=== PATIENT | male | born 1985 | race Caucasian/White ===

== ENCOUNTER 2021-04-23 08:49 | Emergency (ER) | payer OTHER, SELFPAY ==
--- NOTE | ~2021-04-23 | XR_ITS ---
EXAMINATION: XR abdomen/kub 1V DATE: 04/23/2021 10:43 INDICATION: Right flank pain. Kidney stone. TECHNIQUE: A supine view of the abdomen on 2 radiographs was obtained. COMPARISON: CT abdomen and pelvis 04/23/2021 FINDINGS: There are no dilated loops of bowel. There is a 3 mm stone in right ureter at L4-L5. IMPRESSION: 1. 3 mm stone in proximal right ureter. Reviewed, dictated and finalized at location A. ICAL SUPPORT NURSE
--- NOTE | ~2021-04-23 | CT_ITS ---
EXAMINATION: CT abdomen pelvis wo con DATE: 04/23/2021 09:52 INDICATION: Right flank pain. TECHNIQUE: Computed tomography (CT) of the abdomen and pelvis was performed without intravenous contr ast. Automated exposure control and iterative reconstruction technique were employed. The dose-length product was 205.18 mGy-cm. COMPARISON: None. FINDINGS: The visualized portions of the lung bases demonstrate mild atelectasis. No pleural effusion . The heart size is normal. No pericardial effusion. The liver, gallbladder, pancreas, and adrenal gl ands are normal. 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 There is mild right hydronephrosis and hydroureter. There is a 3 mm stone in proximal right ureter. Left kidn ey is normal. There are no dilated loops of bowel. The appendix is normal. There are no pathologicall y enlarged lymph nodes. There is no free intraperitoneal fluid. There is mild lumbar spondylosis. IMPRESSION: 1. 3 mm stone in proximal right ureter with mild right hydronephrosis and proximal hydroureter. Reviewed, dictated and finalized at location A. H EXAMINER HAND IMPRESSION: 1. 3 mm stone in proximal right ureter with mild right hydronephrosis and proxi mal hydroureter.
[2021-04-23 08:56] VITALS: BP 134/84; PULSE 74; RESP 20; TEMP 36.9; O2SAT 100
[2021-04-23 09:50] LABS: Basophils Percent Auto 0.3 % (0.2-1.2); Eosinophils Percent Auto 0.1 % (0-4.4); Hematocrit 45.5 % (42.0-52.0); Immature Granulocyte Absolute 0.02 K/mm3 (0.00-0.031); Immature Granulocyte Percent A 0.3 % (0-0.5); Lymphocytes Absolute Auto 0.52 K/mm3 (0.9-3.2); Lymphocytes Percent Auto 6.5 % (18.3-44.2); Mean Corpuscular HGB Conc 35.2 g/dl (32-36); Mean Corpuscular Hemoglobin 29.9 pg (26-34); Mean Corpuscular Volume 84.9 fl (80-100); Mean Platelet Volume 9.1 fl (7.4-10.4); Monocytes Absolute Auto 0.4 K/mm3 (0.1-0.6); Monocytes Percent Auto 4.5 % (2.6-8.5); Neutrophils Percent Auto 88.3 % (45.5-73.1); Platelet Count Result 212 k/mm3 (150-375); Red Blood Count 5.36 M/mm3 (4.6-6.20); Red Cell Distribution Width 12.8 % (11.5-14.5); White Blood Count 7.9 K/mm3 (4.5-10.0)
[2021-04-23 09:57] LABS: Alanine Aminotransferase 23 U/L (4-50); Albumin Level 4.5 g/dL (3.5-5.1); Alkaline Phosphatase 115 U/L (38-126); Anion Gap 5 mmol/L (8-16); Aspartate Amino Transferase 27 U/L (17-59); Bilirubin,Total 0.8 mg/dL (0.2-1.3); Blood Urea Nitrogen 14 mg/dL (9-20); Calcium 11.7 mg/dL (8.4-10.2); Carbon Dioxide 26 mmol/L (22-30); Chloride 106 mmol/L (98-107); Estimated CRCL calculation 81 ml/min; Estimated Glomerular Filt Rate > 60; Glucose 112 mg/dL (65-110); Potassium 3.9 mmol/L (3.4-5.0); Sodium 137 mmol/L (137-145)
[2021-04-23 10:02] LABS: Add Urine Microscopic? YES; Appearance Urine Turbid (Clear); Bilirubin Urine Negative (Negative); Blood Urine 3+ (Negative); Color Urine Yellow (Yellow); Glucose Urine UA Negative (Negative); Ketones Urine Trace mg/dL (Negative); Leukocyte Esterase Ur Negative LEU/UL (Negative); Mucus Urine Rare /lpf; Nitrate Urine Negative (Negative); Protein Urine 1+ mg/dL (Negative); RBC Urine >75 /hpf (0-2); Specific Grav Ur 1.021 (1.001-1.035); Urobilinogen Urine Negative mg/dL (<2.0)
[2021-04-23] MEDS: SODIUM CHLORIDE 0.9% IV 1,000 ML 999 ML IV CONT (10:20)
[2021-04-23] MEDS: HYDROmorphone HCL INJ (*CRX) 1 MG/ML SYR 0.5 MG IV PUSH (10:20)
[2021-04-23] MEDS: ONDANSETRON INJ 4 MG/2 ML VIAL IV PUSH (10:20)
--- NOTE | 2021-04-23 10:22 | ED.GENADULT ---
HPI - General Adult General Chief complaint: Abdominal Pain Stated complaint: right flank pain Time Seen by Provider: 04/23/21 09:14 Source: patient Mode of arrival: ambulatory Limitations: no limitations History of Present Illness HPI narrative: Patient is a 36-year-old male presented with chief complaint of right flank pain that began approximately 4 AM this morning. Patient reports the pain waxes and wanes during is most intense time minimal nausea now 3-4 episodes of vomiting. Patient denies any issues urinating. Patient denies noting blood in his urine or having any other urinary symptoms. Patient denies history of kidney stones himself but reports that his twin brother has had kidney stones. Patient denies any chronic medical conditions. Patient reports that he attempted to take ibuprofen prior to arrival but vomited it back up. Related Data Allergies Allergy/AdvReac Type Severity Reaction Status Date / Time No Known Allergies Allergy Verified 04/23/21 09:00 Review of Systems Review of Systems: CONSTITUTIONAL: Denies fever, chills, or sweats. EYES: Denies visual changes, redness, or discharge. ENT: Denies rhinorrhea, congestion, sore throat, or otalgia. CARDIOVASCULAR: Reports right flank pain denies chest pain, palpitations, or edema. RESPIRATORY: Denies cough or dyspnea. GASTROINTESTINAL: Denies abdominal pain, nausea, vomiting, or diarrhea. GENITOURINARY: Denies dysuria or hematuria. SKIN: Denies rash or itching. MUSCULOSKELETAL: Denies back pain, joint pain, or myalgia. NEUROLOGIC: Denies headache, numbness, dizziness, or weakness. PSYCHIATRIC: Denies anxiety or depression. Exam Narrative: GENERAL: Well-appearing, well-nourished, and wiggling around uncomfortably. HEAD: Normocephalic, atraumatic. EYES: PERRLA and EOMI. NECK: Supple. No adenopathy or masses. CHEST: Clear to auscultation. No respiratory distress. No wheezes rales or rhonchi HEART: Regular rate and rhythm. No murmur heard. Normal peripheral pulses. ABDOMEN: Right lower flank tenderness. Soft, nontender, nondistended, normal active bowel sounds. EXTREMITIES: Normal range of motion. No edema. SKIN: Warm, dry, no rash. NEURO: No focal deficits. Alert and oriented x3. PSYCH: Normal mood and affect. Course Vital Signs Vital signs: Vital Signs Temperature 98.4 F 04/23/21 08:56 Pulse Rate 74 04/23/21 08:56 Respiratory Rate 20 04/23/21 08:56 Blood Pressure 134/84 04/23/21 08:56 Pulse Oximetry 100 04/23/21 08:56 Temperature 98.4 F 04/23/21 08:56 Pulse Rate 67 04/23/21 10:31 Respiratory Rate 18 04/23/21 10:31 Blood Pressure 115/72 04/23/21 10:31 Pulse Oximetry 99 04/23/21 10:31 Medical Decision Making MDM Narrative Medical decision making narrative: CT notes 3 mm stone in proximal right ureter with mild right hydronephrosis and proximal hydroureter. Stone should pass. Patient will be given flomax, toradol, urine strainer and urology referral. Patient referred to urology to make sure his stone passes and further intervention is not needed. Patient given RTER instructions if he has any worsening or emergent symptoms. Vital Signs Vital Signs: Vital Signs Temperature 98.4 F 04/23/21 08:56 Pulse Rate 74 04/23/21 08:56 Respiratory Rate 20 04/23/21 08:56 Blood Pressure 134/84 04/23/21 08:56 Pulse Oximetry 100 04/23/21 08:56 Temperature 98.4 F 04/23/21 08:56 Pulse Rate 67 04/23/21 10:31 Respiratory Rate 18 04/23/21 10:31 Blood Pressure 115/72 04/23/21 10:31 Pulse Oximetry 99 04/23/21 10:31 Lab Data Result diagrams: 04/23/21 09:29 04/23/21 09:29 Labs: Lab Results 04/23/21 04/23/21 04/23/21 Range/Units 09:29 09:29 09:29 WBC 7.9 (4.5-10.0) K/mm3 RBC 5.36 (4.6-6.20) M/mm3 Hgb 16.0 (14.0-18.0) g/dL Hct 45.5 (42.0-52.0) % MCV 84.9 (80-100) fl MCH 29.9 (26-34) pg MCHC 35.2 (32-36) g/dl RDW 12.8 (11.5
[2021-04-23] MEDS: TAMSULOSIN HCL 0.4 MG CAPSULE PO (10:29)
[2021-04-23] MEDS: KETOROLAC 15 MG/ML VIAL (*BKC) IV PUSH (10:29)
[2021-04-23 10:31] VITALS: BP 115/72; PULSE 67; RESP 18; O2SAT 99
== END 2021-04-23 11:33 | disposition home or self-care (01) ==
PROVIDERS: Emergency Provider Emergency Medicine; PCP Family Medicine
DX: N20.1 Calculus of ureter (principal)
CPT/HCPCS: 36415; 74018; 74176; 80053; 81001; 85025; 96361; 96374; 96375; 99284; A9270; J1170; J1885; J2405; J7030